=== PATIENT | female | born 1960 | race Caucasian/White ===

== ENCOUNTER → 2023-12-01 | Outpatient (CLI) | payer MEDICARE, BC ==
[2023-12-01 11:11] VITALS: BP 160/76; PULSE 79; RESP 18; TEMP 98.1
--- NOTE | 2023-12-01 11:38 | P.GSHP ---
History of Present Illness H&P Date: 12/01/23 Chief Complaint: right breast stage I invasive ductal cancer Jessica 3-year-old white female seen in consultation for Dr. Garcia regarding a right breast biopsy-proven invasive ductal carcinoma. She underwent a routine screening mammogram in September 2023 which showed a suspicious density in the retroareolar area of the right breast. She had confirmatory views on 10-08-2023. An ultrasound was done which showed a heterogeneous hypoechoic mass with irregular and slightly elevated margins measuring 0.7 x 0.7 x 0.5 cm. Ultrasound core biopsy was performed on 11-04-2023 at [facility], this was positive for grade 1 invasive ductal carcinoma ER positive [place] negative HER2 negative low Ki-67. She did not feel any lumps masses or nodules of concern in either breast. She has not had any surgery on her breast. She did not have any recent infection or trauma to her breast. Note Dr. Carrillo. medical oncology 11-16-2023 reviewed Caffeine: 4 cups/day nicotine: 1/2 PPD BCP: 3 years in remote past chocolate: occasional Family History: 2 maternal aunts: breast cancer paternal grandmother: breast cancer father: nonhodgkins lymphoma, melanoma mother: melanoma; ? ovarian cancer Hormonal History: menarche: 10 , breast fed: no, age at first : 21 menopause: hysterectomy 40 for fibroids Surgical History: gallbaldder tonsil ankle femoral artery bypass surgery stint in heart carotid artery surgery; endarterectomy thyroid Medical History: heart disease/ on a recent echo athrosclerotic disease ? COPD; SOB with walking high cholesterol HTN hypothyroid TIA Social History: nicotine: as above alcohol: none drugs: none - Constitutional Constitutional: Denies chills, Denies fever - EENT Eyes: denies blurred vision, denies pain Ears: bilateral: decreased hearing, tinnitus Ears, nose, mouth and throat: Denies headache, Denies sore throat - Breasts Breasts: bilateral: as per HPI - Cardiovascular Cardiovascular: Reports shortness of breath - Respiratory Respiratory: Reports as per HPI, Reports cough - Gastrointestinal Gastrointestinal: Denies abdominal pain, Denies diarrhea, Denies nausea, Denies vomiting - Genitourinary (Female) Genitourinary: Reports as per HPI - Menstruation Menstruation: Reports post hysterectomy - Musculoskeletal Musculoskeletal: Reports myalgias - Integumentary Integumentary: Denies pruritus, Denies rash - Neurological Neurological: Denies numbness, Denies weakness - Psychiatric Psychiatric: Denies anxiety, Denies depression - Endocrine Endocrine: Denies fatigue, Denies weight change - Hematologic/Lymphatic Comment: plavix, baby aspirin - Allergic/Immunologic Allergic/Immunologic: Reports as per HPI, Reports seasonal allergies Past Medical History History of Any Multi-Drug Resistant Organisms: None Reported Smoking Status: Current every day smoker Medications and Allergies Allergies Allergy/AdvReac Type Severity Reaction Status Date / Time lisinopril AdvReac Cough Unverified 12/01/23 11:04 Surgical - Exam Vital Signs Temp Pulse Resp BP Pulse Ox 98.1 F 79 18 160/76 95 12/01/23 11:01 12/01/23 11:01 12/01/23 11:01 12/01/23 11:01 12/01/23 11:01 - General no distress - Eyes normal ocular movement - Neck trachea midline - Respiratory normal respiratory effort, clear to auscultation - Cardiovascular Heart Sounds: normal: S1, S2 - Abdomen Abdomen: soft, non tender, no guarding, no rigid, no rebound - Integumentary normal turgor - Neurologic no disoriented, no combative - Musculoskeletal normal gait - Psychiatric oriented to time, oriented to person, oriented to place, speech is normal, memory intact Breast Exam: BRA: 38C Inspection: right side smaller than left side; bilateral grade 3 ptosis palpation: right breast: Exam fibrocystic changes, nodule immediately behind the nipple areolar complex approximately 8 mm in size Right axilla: No adenopathy of concern Left breast: Multi positional exam fibrocystic changes no dominant masses or nodules of concern Left axilla: No adenopathy of concern Assessment and Plan Assessment: Impression: Surgical History: gallbaldder tonsil ankle femoral artery bypass surgery stint in heart carotid artery surgery; endarterectomy thyroid Medical History: heart disease/ on a recent echo athrosclerotic disease ? COPD; SOB with walking high cholesterol HTN hypothyroid TIA Right breast invasive ductal carcinoma stage Ia Plan: Presentation of case at tumor board CC: Dr. Rodriguez
== END ==
LOC: WWCWWP 10:54 → EDBD 12:00
PROVIDERS: ATTEND Surgery
DX: C50.911 Malignant neoplasm of unspecified site of right female breast (principal); E03.9 Hypothyroidism, unspecified; E78.00 Pure hypercholesterolemia, unspecified; F17.210 Nicotine dependence, cigarettes, uncomplicated; I25.10 Atherosclerotic heart disease of native coronary artery without angina pectoris; I10 Essential (primary) hypertension; Z17.0 Estrogen receptor positive status [ER+]; Z80.3 Family history of malignant neoplasm of breast; Z86.73 Personal history of transient ischemic attack (TIA), and cerebral infarction without residual deficits; Z98.890 Other specified postprocedural states; Z95.5 Presence of coronary angioplasty implant and graft; Z88.8 Allergy status to other drugs, medicaments and biological substances; Z79.82 Long term (current) use of aspirin; Z79.899 Other long term (current) drug therapy; Z79.02 Long term (current) use of antithrombotics/antiplatelets

== ENCOUNTER → 2023-12-17 | Outpatient (CLI) | payer MEDICARE, BC ==
--- NOTE | 2023-12-17 11:47 | CTL ---
EXAMINATION TYPE: CT Low Dose Lung DATE OF EXAM: 12/17/2023 10:31 AM CLINICAL INDICATION:Female, 63 years old with history of Z12.2 LUNG CA SCREEN F17.210 NICOTINE DEPEND ENCE; Hx nicotine dependence, 1 pk per day x 30 years, current smoker, c/o SOB, cough , history of to bacco use. COMPARISON: None. TECHNIQUE: Multiple axial non-contrast scans were obtained from approximately the lung apices through the upper abdomen. Coronal and sagittal reformatted images were obtained. Low dose technique was uti lized. CT DLP: 100 mGycm, Automated exposure control for dose reduction was used. CT Contrast: Contrast used: None Oral contrast used: None FINDINGS: ======== Lack of intravenous contrast and low dose technique limits the evaluation of the vascular and soft ti ssue structures. LUNGS: No evidence of pulmonary fibrosis. No evidence of focal consolidation, pneumothorax or pleural effusion. Mild centrilobular emphysema changes. Nodules: RUL: None. RML: None. RLL: Calcified granuloma. PÉREZ: None. LLL: None. AIRWAY: Patent and unremarkable. HEART: Size within normal limits. MEDIASTINUM: No gross evidence of adenopathy. Calcified lymph nodes are seen along the right pulmonar y hilum and subcarinal region of the mediastinum. VASCULATURE: No aortic aneurysm. MUSCULOSKELETAL: No acute osseous abnormalities SOFT TISSUES/LYMPH NODES: Unremarkable. LOWER NECK: No significant findings. UPPER ABDOMEN: Upper abdomen diastasis of the rectus abdominis muscle versus hernia with large bowel entering the hernia. The gallbladder surgically absent. IMPRESSION: 1. No clinically significant pulmonary nodules. 2. Mild emphysema 3. Calcified mediastinal and right hilum lymph nodes and right lower lung calcified granuloma compati ble with chronic granulomatous disease. CT LUNG RAD AND CT CHEST RECOMMENDATION: Lung-Rad 1 Negative: Continue annual screening with LDCT in 12 months. S Modifier (other clinically significant findings): None Recommend smoking cessation (if current smoker), or continuation of smoking cessation (if prior smoke r). Annual screening for lung cancer with low-dose computed tomography is recommended in adults ages 55 to 77 years who have a 30 pack-year smoking history and currently smoke or have quit within the pa st 15 years. Screening should be discontinued once a person has not smoked for 15 years or develops a health problem that substantially limits life expectancy or the ability or willingness to have curat gina lung surgery. Lung rads 2021 [email or web address]
== END | disposition home or self-care (01) ==
LOC: RADCTMAIN 09:49
PROVIDERS: ATTEND Internal Medicine Critical Care Medicine
DX: Z12.2 Encounter for screening for malignant neoplasm of respiratory organs (principal); F17.210 Nicotine dependence, cigarettes, uncomplicated; J43.2 Centrilobular emphysema; R59.0 Localized enlarged lymph nodes; J98.4 Other disorders of lung
CPT/HCPCS: 71271

== ENCOUNTER 2023-12-21 11:29 | Day surgery (SDC) | payer MEDICARE, BC ==
[~2023-12-21 11:29] MED LIST: ALPRAZolam 0.5 MG TAB PO PRN; HYDROmorphone 0.5 MG/0.5 ML SYRINGE IVP PRN; LIDOCAINE 1% (10MG/ML) FOR IV START INTRADERMA PRN; METOCLOPRAMIDE 5 MG/ML 2 ML VIAL IVP PRN
[2023-12-21] MEDS: LACTATED RINGERS 1,000 ML IV SCH (11:46)
[2023-12-21] MEDS: LIDOCAINE 1% INJ 10MG/ML (20 ML MDV) SQ ONE (13:19)
[2023-12-21] MEDS: DEXAMETHASONE SOD PHOSPHATE 4 MG/ML 1 ML VIAL IV ONE (14:16)
[2023-12-21] MEDS: ONDANSETRON 4 MG/2 ML VIAL IVP ONE (14:16)
[2023-12-21] MEDS: MIDAZOLAM 2 MG/2 ML VIAL IVP ONE (14:17)
[2023-12-21] MEDS: HEPARIN SODIUM,PORCINE 5,000 UNIT/ML 1 ML VIAL SQ PRN (14:19)
--- NOTE | 2023-12-21 14:23 | NM ---
EXAMINATION TYPE: NM sentinel node injection DATE OF EXAM: 12/21/2023 COMPARISON: NONE CLINICAL INDICATION: Female, 63 years old with history of RIGHT BREAST CA; TECHNIQUE AND FINDINGS: The procedure of sentinel lymph node injection was explained to the patient. The benefits, alternatives, and risks were discussed. An informed consent was then obtained. Overlying skin is cleaned with sterile alcohol. Following this, 480 uCi Tc99m Tilmanocept was inject ed in the upper outer aspect of the right nipple intradermally. The patient tolerated the procedure well without any immediate complication. The patient was kept in the radiology department for short stay after the procedure and then taken to surgery for surgical p rocedure what is presumed intraoperative gamma probe will be used for sentinel lymph node detection. IMPRESSION: Right breast radiotracer injection for sentinel node localization as above.
--- NOTE | 2023-12-21 15:08 | P.NAPBC ---
NAPBC Queries - NAPBC Queries Was patient's case review presented at [facility] tumor board? If no, comment.: Yes Was patient's pathology reviewed at [facility]? If no, comment.: Yes Was breast conservation surgery offered? If no, comment.: Yes Was sentinel node biopsy offered? If no, comment.: Yes Was diagnosis confirmed by percutaneous core biopsy? If no, comment.: Yes Is patient mastectomy patient?: No Was a preop referral to reconstructive surgeon offered?: No Clinical Stage: stage I invasive ductal right breast cancer [id number]
[2023-12-21] MEDS ORDERED: PHENYLEPHRINE-0.9% NACL SYG 1,000 MCG/10 ML SYRINGE ONE (15:52)
[2023-12-21] MEDS ORDERED: LIDOCAINE 1% INJ 10MG/ML (20 ML MDV) ONE (15:52)
[2023-12-21] MEDS ORDERED: fentaNYL (PF) 50 MCG/ML 2 ML AMP ONE (15:52)
[2023-12-21] MEDS ORDERED: ETOMIDATE 2 MG/ML 10 ML VIAL ONE (15:52)
[2023-12-21] MEDS ORDERED: SUCCINYLCHOLINE CHLORIDE 200 MG/10 ML VIAL IV ONE (15:52)
--- NOTE | 2023-12-21 17:19 | P.OP ---
Date of Procedure: 12/21/23 Preoperative Diagnosis: Right breast invasive ductal carcinoma Postoperative Diagnosis: Same Procedure(s) Performed: Right breast sentinel node biopsy, right breast needle localization lumpectomy, right breast oncoplastic tissue transfer 48 cm Anesthesia: REILLYA Surgeon: Dayana Garcia Estimated Blood Loss (ml): 8 IV fluids (ml): 400 Pathology: other (Breast tissue, sentinel node biopsy) Condition: stable Disposition: same day Indications for Procedure: Right breast invasive ductal carcinoma Operative Findings: Right breast invasive ductal carcinoma, right axillary node Description of Procedure: The patient was seen first in the radiology department. Needle localization of the right breast cancer was performed. Periareolar injection of radiotracer was performed. The patient was brought up to the preoperative area. Discussion was had with the patient and her regarding the location of the cancer directly behind the nipple areolar complex. She wished to have the nipple areolar complex removed to decrease any risk of having to come back for a positive margin. She understands that that does not completely negate the risk but it may decrease it. The patient was brought to the operative suite. Following induction of anesthesia the neoprobe was used to interrogate the axilla. Radioactivity was noted. The right breast was prepped and draped in a sterile fashion as was the right axilla. An incision was made in the right axilla over the area of greatest radioactivity. The tissue was grasped and using the harmonic scalpel dissection was performed. The area of radioactivity was excised. The 10-second count on the lymph node was 67,681 the background count was 12. No additional radioactive or palpable lymph nodes were identified. The wound was irrigated. The deep tissues were closed using 3-0 Vicryl suture. The skin was closed using 4-0 Monocryl. The area of the breast was approached. A circumareolar incision was made and the needle was identified. The surrounding tissue was dissected down to the pectoralis muscle. The specimen was painted for orientation and radiograph revealed the area of concern to been removed. New medial lateral superior and inferior margins were obtained. Following this a superior pillar was formed which was 5 x 3 cm. An inferior pillar was formed which was 5 x 3 cm. The specimen was 6 x 3 cm. The wound was well-irrigated. Titanium clips were placed. Surgicel in powder form was placed. Total oncoplastic tissue transfer was 48 cm. The deep tissues were brought together using 3-0 Vicryl suture. The subcutaneous tissue was closed using 3-0 Vicryl suture. The skin was closed using 4-0 Monocryl. The patient tolerated the procedure in stable condition. All instrument and sponge counts were correct at the end of the case. Surgical glue was placed on the incisions.
[2023-12-21 18:07] VITALS: TEMP 97.3
[2023-12-21] MEDS ORDERED: ACETAMINOPHEN TAB 500 MG TAB ONE (18:55)
[2023-12-21] MEDS: ACETAMINOPHEN TAB 500 MG TAB PO ONE (18:58)
[2023-12-21 19:01] VITALS: BP 168/70; PULSE 65; RESP 8
--- NOTE | 2023-12-29 08:53 | MM ---
Reason for Exam: Post Procedure Mammogram. Risk Values: Edith 5 year model risk: 1.1%. NCI Lifetime model risk: 4.2%. Tissue Density: Right: The breast tissue is heterogeneously dense. This may lower the sensitivity of mammography. Pathology Description: Location: 6 o'clock, retroareolar. Needle Type: 5 cm Kopan The procedure of needle localization with wire placement and than surgical excision was explained to the patient. Benefits, alternatives, and risks were discussed. An informed consent was then obtained. The shortest pathway for procedure was chosen. Shortest pathway was a lateral approach. The overlying skin was prepped and draped in usual sterile fashion. Lidocaine was used as anesthetic into the skin and subcutaneous tissue up to the level of area of concern. A 5 cm Kopans needle was used. It was placed via a lateral approach under direct ultrasound guidance. At this point, wire was placed and the needle was withdrawn. The wire was fixed to patient's skin. Images were marked for surgeon. The patient tolerated the procedure well without any immediate complication. Post procedure mammogram shows wire along the expected subareolar mass and biopsy clip. The patient was kept in the radiology department for short stay after the procedure and then taken to surgery for surgical excision. Targeted microclip and wire are identified in specimen mammogram. The patient was kept in hospital for short stay after the procedure and then discharged home in stable condition. IMPRESSION: Successful, uncomplicated needle localization with wire placement and surgical excision of biopsy-proven subareolar right breast cancer; full pathology results to follow. Pathology Results: Result: Malignant, Invasive ductal carcinoma. A. RIGHT BREAST, LUMPECTOMY: Invasive well differentiated ductal carcinoma (grade 1) and focal low grade DCIS. Margins negative for invasive malignancy and DCIS. Background fibrocystic changes, previous biopsy site and a small intraductal papilloma not involving the margins. See Surgical Pathology Cancer Case Summary. B. RIGHT SENTINEL NODE #1: Lymph node negative for metastasis. CK7 immunostain performed on block B1 is confirmatory (controls appropriate). C. ADDITIONAL RIGHT AXILLARY TISSUE: Two lymph nodes negative for metastasis. D. RIGHT BREAST NEW SUPERIOR MARGIN, EXCISION: Benign breast with fibrocystic changes. E. RIGHT BREAST NEW MEDIAL MARGIN, EXCISION: Benign breast with fibrocystic changes. F. RIGHT BREAST NEW INFERIOR MARGIN, EXCISION: Benign breast with fibrocystic changes including focal microcalcifications. G. RIGHT BREAST NEW LATERAL MARGIN, EXCISION: Benign breast with fibrocystic changes. Overall Assessment: Malignant Assessment: MG diagnostic mammo RT wo CAD - Right: Known biopsy proven malignancy, BI-RAD 6. Management: Surgical Consultation of the right breast. Electronically signed and approved by: Emy León M.D. Radiologist
== END 2023-12-21 19:25 | disposition home or self-care (01) ==
LOC: OR 11:29
PROVIDERS: ATTEND Surgery
DX: C50.911 Malignant neoplasm of unspecified site of right female breast (principal)
CPT/HCPCS: 19301; 38525; 88342; 88307; 77065; 76098; 19285; 38792; C1819; A9520; J2250; J0330; J1644; J1100; J0690; J2405; J2001; J3010; J2371

== ENCOUNTER → 2023-12-30 | Outpatient (CLI) | payer MEDICARE, BC ==
--- NOTE | 2023-12-30 12:34 | P.PN ---
Progress Note - Text Progress Note Date: 12/30/23 Jessica is status post right breast central lumpectomy on 12-21-2023. Postoperatively she has done well. Pathology revealed all negative margins and 3 lymph nodes negative for tumor. Examination: Lungs: Clear Heart: Regular rate and rhythm Incision: Clean and dry breast and axilla/ecchymosis present lateral aspect of breast Patient's blood pressure was noted to be 194/68 and patient developed a nosebleed while in the postoperative visit Impression: Patient doing well postoperative from a surgical standpoint Plan: Appointment medical oncology Appointment radiation oncology Repeat blood pressure Follow-up with primary care doctor regarding blood pressure/consider being seen in the emergency department CC: Dr. Holly ([facility])
[2023-12-30 12:43] VITALS: BP 194/68; PULSE 55; RESP 16; TEMP 98.1
== END ==
LOC: WWCWWP 11:06
PROVIDERS: ATTEND Surgery
DX: R04.0 Epistaxis (principal); Z98.890 Other specified postprocedural states; Z88.8 Allergy status to other drugs, medicaments and biological substances

== ENCOUNTER → 2024-04-24 | Outpatient (CLI) | payer MEDICARE, BC ==
[2024-04-24 08:54] VITALS: BP 183/78; PULSE 61; RESP 17; TEMP 98.3
--- NOTE | 2024-04-24 09:22 | P.PN ---
Subjective Progress Note Date: 04/24/24 Principal diagnosis: Stage Ia (pT1b pN0 M0 ER + IL - HER2- G 1) invasive ductal carcinoma retroareolar right breast status post partial mastectomy and sentinel node biopsy History of Present Illness H&P Date: 04-24-24 Chief Complaint: right breast stage I invasive ductal cancer Jessica is a 64-year-old white female seen in consultation for Dr. Carrillo regarding a right breast biopsy-proven invasive ductal carcinoma. She underwent a routine screening mammogram in September 2023 which showed a suspicious density in the retroareolar area of the right breast. She had confirmatory views on 10-08-2023. An ultrasound was done which showed a heterogeneous hypoechoic mass with irregular and slightly elevated margins measuring 0.7 x 0.7 x 0.5 cm. Ultrasound core biopsy was performed on 11-04-2023 at [facility], this was positive for grade 1 invasive ductal carcinoma ER positive [place] negative HER2 negative low Ki-67. She did not feel any lumps masses or nodules of concern in either breast. She has not had any surgery on her breast. She did not have any recent infection or trauma to her breast. The patient on 12-21-2023 underwent a right breast lumpectomy and sentinel node biopsy. The lumpectomy revealed an 8 mm invasive ductal carcinoma all margins were negative. She had 3 lymph nodes removed all were negative. 01-11-[address] Dodd reviewed, completed treatment about 3 weeks ago She is on antihormone medication from Dr. Carrillo; she is tolerating it well She is complaining of some fullness under the right breast, no other lumps masses or nodule of concern Caffeine: 4 cups/day nicotine: 1/2 PPD BCP: 3 years in remote past chocolate: occasional Family History: 2 maternal aunts: breast cancer paternal grandmother: breast cancer father: nonhodgkins lymphoma, melanoma mother: melanoma; ? ovarian cancer Hormonal History: menarche: 10 , breast fed: no, age at first : 21 menopause: hysterectomy 40 for fibroids Surgical History: gallbaldder tonsil ankle femoral artery bypass surgery stint in heart carotid artery surgery; endarterectomy thyroid right breast lumpectomy and SNB Medical History: heart disease/ on a recent echo athrosclerotic disease ? COPD; SOB with walking high cholesterol HTN hypothyroid TIA Social History: nicotine: as above alcohol: none drugs: none - Constitutional Constitutional: Denies chills, Denies fever - EENT Eyes: denies blurred vision, denies pain Ears: bilateral: decreased hearing, tinnitus Ears, nose, mouth and throat: Denies headache, Denies sore throat - Breasts Breasts: bilateral: as per HPI - Cardiovascular Cardiovascular: Reports shortness of breath - Respiratory Respiratory: Reports as per HPI, Reports cough - Gastrointestinal Gastrointestinal: Denies abdominal pain, Denies diarrhea, Denies nausea, Denies vomiting - Genitourinary (Female) Genitourinary: Reports as per HPI - Menstruation Menstruation: Reports post hysterectomy - Musculoskeletal Musculoskeletal: Reports myalgias - Integumentary Integumentary: Denies pruritus, Denies rash - Neurological Neurological: Denies numbness, Denies weakness - Psychiatric Psychiatric: Denies anxiety, Denies depression - Endocrine Endocrine: Denies fatigue, Denies weight change - Hematologic/Lymphatic Comment: plavix, baby aspirin - Allergic/Immunologic Allergic/Immunologic: Reports as per HPI, Reports seasonal allergies Past Medical History History of Any Multi-Drug Resistant Organisms: None Reported Smoking Status: Current every day smoker Medications and Allergies Allergies Allergy/AdvReac Type Severity Reaction Status Date / Time lisinopril AdvReac Cough Unverified 12/01/23 11:04 Objective - Vital Signs Vital signs: Intake & Output 04/23/24 04/24/24 04/24/24 18:59 06:59 18:59 Weight 92.986 kg - Constitutional General appearance: Present: cooperative - EENT Eyes: Present: EOMI ENT: Present: hearing grossly normal - Neck Neck: Present: normal ROM - Respiratory Respiratory: bilateral: CTA - Cardiovascular Heart sounds: normal: S1, S2 - Integumentary Integumentary: Present: normal turgor - Musculoskeletal Musculoskeletal: Present: gait normal - Psychiatric Psychiatric: Present: A&O x's 3, appropriate affect, intact judgment & insight - Additional findings Additional findings: Breast Exam: BRA: 38C Inspection: right side smaller than left side; bilateral grade 3 ptosis palpation: right breast: Exam fibrocystic changes, nodule immediately behind the nipple areolar complex approximately 8 mm in size Right axilla: No adenopathy of concern Left breast: Multi positional exam fibrocystic changes no dominant masses or nodules of concern Left axilla: No adenopathy of concern Assessment and Plan Assessment: Impression: Surgical History: gallbaldder tonsil ankle femoral artery bypass surgery stint in heart carotid artery surgery; endarterectomy thyroid Status post right lumpectomy with radiation therapy right breast presently on antihormone therapy Right breast invasive ductal carcinoma stage Ia Patient of seroma Following informed consent the area of concern was prepped using alcohol, an 18- gauge needle on a 60 cc syringe was used to aspirate 410 cc of straw-colored fluid with complete resolution of the seroma Plan: Continue antihormone therapy Follow-up radiation oncology Follow-up here in 1 month to recheck seroma bilateral mammogram in September 2024 patient to follow up sooner any concerns CC: Dr. Holly Additional CC's: Chai Holly
== END ==
LOC: WWCWWP 08:38
PROVIDERS: ATTEND Surgery
DX: C50.911 Malignant neoplasm of unspecified site of right female breast (principal); K82.9 Disease of gallbladder, unspecified; J03.90 Acute tonsillitis, unspecified; L76.82 Other postprocedural complications of skin and subcutaneous tissue; F17.210 Nicotine dependence, cigarettes, uncomplicated; Z95.5 Presence of coronary angioplasty implant and graft; Z98.890 Other specified postprocedural states; Z48.817 Encounter for surgical aftercare following surgery on the skin and subcutaneous tissue; Z92.3 Personal history of irradiation; Z90.11 Acquired absence of right breast and nipple; Z17.0 Estrogen receptor positive status [ER+]; Z88.8 Allergy status to other drugs, medicaments and biological substances; Z80.3 Family history of malignant neoplasm of breast

== ENCOUNTER → 2024-05-26 | Outpatient (CLI) | payer MEDICARE, BC ==
--- NOTE | 2024-05-26 10:22 | P.PN ---
Subjective Progress Note Date: 05/26/24 Principal diagnosis: right breast IDC 2023 ight breast stage I invasive ductal cancer Jessica is a 64-year-old white female seen in consultation for Dr. Carrillo regarding a right breast biopsy-proven invasive ductal carcinoma. She underwent a routine screening mammogram in September 2023 which showed a suspicious density in the retroareolar area of the right breast. She had confirmatory views on 10-08-2023. An ultrasound was done which showed a heterogeneous hypoechoic mass with irregular and slightly elevated margins measuring 0.7 x 0.7 x 0.5 cm. Ultrasound core biopsy was performed on 11-04-2023 at [facility], this was positive for grade 1 invasive ductal carcinoma ER positive [place] negative HER2 negative low Ki-67. She did not feel any lumps masses or nodules of concern in either breast. She has not had any surgery on her breast. She did not have any recent infection or trauma to her breast. Note Dr. Carrillo. medical oncology 11-16-2023 reviewed, recommended hormone therapy (on hormone blocking agent, she is uncertain of the name of the medication, she is tolerating it OK)) OR 12-21-23 8 mm IDC, all margins (-), SNB 3 nodes (-) radiation oncology note : completed March 2024; 20 treatments; Dr. Dodd in [place] through [facility] She had a seroma aspirated about 4 weeks ago. Caffeine: 4 cups/day nicotine: 1/2 PPD BCP: 3 years in remote past chocolate: occasional Family History: 2 maternal aunts: breast cancer paternal grandmother: breast cancer father: nonhodgkins lymphoma, melanoma mother: melanoma; ? ovarian cancer Hormonal History: menarche: 10 , breast fed: no, age at first : 21 menopause: hysterectomy 40 for fibroids Surgical History: gallbaldder tonsil ankle femoral artery bypass surgery stint in heart carotid artery surgery; endarterectomy thyroid Medical History: heart disease/ on a recent echo athrosclerotic disease ? COPD; SOB with walking high cholesterol HTN hypothyroid TIA Social History: nicotine: as above alcohol: none drugs: none - Constitutional Constitutional: Denies chills, Denies fever - EENT Eyes: denies blurred vision, denies pain Ears: bilateral: decreased hearing, tinnitus Ears, nose, mouth and throat: Denies headache, Denies sore throat - Breasts Breasts: bilateral: as per HPI - Cardiovascular Cardiovascular: Reports shortness of breath - Respiratory Respiratory: Reports as per HPI, Reports cough - Gastrointestinal Gastrointestinal: Denies abdominal pain, Denies diarrhea, Denies nausea, Denies vomiting - Genitourinary (Female) Genitourinary: Reports as per HPI - Menstruation Menstruation: Reports post hysterectomy - Musculoskeletal Musculoskeletal: Reports myalgias - Integumentary Integumentary: Denies pruritus, Denies rash - Neurological Neurological: Denies numbness, Denies weakness - Psychiatric Psychiatric: Denies anxiety, Denies depression - Endocrine Endocrine: Denies fatigue, Denies weight change - Hematologic/Lymphatic Comment: plavix, baby aspirin - Allergic/Immunologic Allergic/Immunologic: Reports as per HPI, Reports seasonal allergies Past Medical History History of Any Multi-Drug Resistant Organisms: None Reported Smoking Status: Current every day smoker Medications and Allergies Allergies Allergy/AdvReac Type Severity Reaction Status Date / Time lisinopril AdvReac Cough Unverified 12/01/23 11:04 Objective - Constitutional General appearance: Present: cooperative - EENT Eyes: Present: EOMI ENT: Present: hearing grossly normal - Neck Neck: Present: normal ROM - Respiratory Respiratory: bilateral: CTA - Cardiovascular Heart sounds: normal: S1, S2 - Integumentary Integumentary: Present: normal turgor - Musculoskeletal Musculoskeletal: Present: gait normal - Psychiatric Psychiatric: Present: A&O x's 3, appropriate affect, intact judgment & insight - Additional findings Additional findings: Breast Exam: BRA: 38C Inspection: right side smaller than left side; bilateral grade 3 ptosis palpation: right breast: Exam fibrocystic changes, post op changes, no masses of concern Right axilla: No adenopathy of concern Left breast: Multi positional exam fibrocystic changes, post op changes, no nipple or aerola, seroma present Left axilla: No adenopathy of concern Assessment and Plan Assessment: Impression: Surgical History: gallbaldder tonsil ankle femoral artery bypass surgery stint in heart carotid artery surgery; endarterectomy thyroid Medical History: heart disease/ on a recent echo athrosclerotic disease ? COPD; SOB with walking high cholesterol HTN hypothyroid TIA right breast central lumpectomy 12-21-23 Plan: aspiration of seroma follow up medical oncology follow up radiation oncology follow up here in 1 month bilateral mammogram in September with appointment CC: Dr. Flynn
[2024-05-26 10:31] VITALS: BP 149/67; PULSE 63; RESP 16; TEMP 97.9
== END ==
LOC: WWCWWP 09:21
PROVIDERS: ATTEND Surgery
DX: C50.911 Malignant neoplasm of unspecified site of right female breast (principal); E78.00 Pure hypercholesterolemia, unspecified; I10 Essential (primary) hypertension; F17.210 Nicotine dependence, cigarettes, uncomplicated; E03.9 Hypothyroidism, unspecified; Z86.73 Personal history of transient ischemic attack (TIA), and cerebral infarction without residual deficits; Z80.3 Family history of malignant neoplasm of breast; Z17.0 Estrogen receptor positive status [ER+]; Z88.8 Allergy status to other drugs, medicaments and biological substances; Z79.899 Other long term (current) drug therapy; Z79.02 Long term (current) use of antithrombotics/antiplatelets; Z79.890 Hormone replacement therapy

== ENCOUNTER → 2024-06-06 | Outpatient (CLI) | payer MEDICARE, BC ==
--- NOTE | 2024-06-06 13:47 | P.PN ---
Subjective Progress Note Date: 06/06/24 Following informed consent the area of concern in the right breast was prepped with alcohol. An 18 chencho needle on a 20 cc syringe was used to aspirate 280 cc of straw colored fluid with complete resolution of the seroma. The patient tolerated the procedure well. Original Note: Subjective Progress Note Date: 05/26/24 Principal diagnosis: right breast IDC 2023 ight breast stage I invasive ductal cancer Jessica is a 64-year-old white female seen in consultation for Dr. Carrillo regarding a right breast biopsy-proven invasive ductal carcinoma. She underwent a routine screening mammogram in September 2023 which showed a suspicious density in the retroareolar area of the right breast. She had confirmatory views on 10-08-2023. An ultrasound was done which showed a heterogeneous hypoechoic mass with irregular and slightly elevated margins measuring 0.7 x 0.7 x 0.5 cm. Ultrasound core biopsy was performed on 11-04-2023 at [facility], this was positive for grade 1 invasive ductal carcinoma ER positive [place] negative HER2 negative low Ki-67. She did not feel any lumps masses or nodules of concern in either breast. She has not had any surgery on her breast. She did not have any recent infection or trauma to her breast. Note Dr. Carrillo. medical oncology 11-16-2023 reviewed, recommended hormone therapy (on hormone blocking agent, she is uncertain of the name of the medication, she is tolerating it OK)) OR 12-21-23 8 mm IDC, all margins (-), SNB 3 nodes (-) radiation oncology note : completed March 2024; 20 treatments; Dr. Dodd in [place] through [facility] She had a seroma aspirated about 4 weeks ago. 06-06-24 Jessica noted over the past several days that the breast on the right became swollen and erythematous. She has not had any fever or chills. She comes in for evaluation and possible repeat seroma Caffeine: 4 cups/day nicotine: 1/2 PPD BCP: 3 years in remote past chocolate: occasional Family History: 2 maternal aunts: breast cancer paternal grandmother: breast cancer father: nonhodgkins lymphoma, melanoma mother: melanoma; ? ovarian cancer Hormonal History: menarche: 10 , breast fed: no, age at first : 21 menopause: hysterectomy 40 for fibroids Surgical History: gallbaldder tonsil ankle femoral artery bypass surgery stint in heart carotid artery surgery; endarterectomy thyroid Medical History: heart disease/ on a recent echo athrosclerotic disease ? COPD; SOB with walking high cholesterol HTN hypothyroid TIA Social History: nicotine: as above alcohol: none drugs: none - Constitutional Constitutional: Denies chills, Denies fever - EENT Eyes: denies blurred vision, denies pain Ears: bilateral: decreased hearing, tinnitus Ears, nose, mouth and throat: Denies headache, Denies sore throat - Breasts Breasts: bilateral: as per HPI - Cardiovascular Cardiovascular: Reports shortness of breath - Respiratory Respiratory: Reports as per HPI, Reports cough - Gastrointestinal Gastrointestinal: Denies abdominal pain, Denies diarrhea, Denies nausea, Denies vomiting - Genitourinary (Female) Genitourinary: Reports as per HPI - Menstruation Menstruation: Reports post hysterectomy - Musculoskeletal Musculoskeletal: Reports myalgias - Integumentary Integumentary: Denies pruritus, Denies rash - Neurological Neurological: Denies numbness, Denies weakness - Psychiatric Psychiatric: Denies anxiety, Denies depression - Endocrine Endocrine: Denies fatigue, Denies weight change - Hematologic/Lymphatic Comment: plavix, baby aspirin - Allergic/Immunologic Allergic/Immunologic: Reports as per HPI, Reports seasonal allergies Past Medical History History of Any Multi-Drug Resistant Organisms: None Reported Smoking Status: Current every day smoker Medications and Allergies Allergies Allergy/AdvReac Type Severity Reaction Status Date / Time lisinopril AdvReac Cough Unverified 12/01/23 11:04 Objective - Constitutional General appearance: Present: cooperative - EENT Eyes: Present: EOMI ENT: Present: hearing grossly normal - Neck Neck: Present: normal ROM - Respiratory Respiratory: bilateral: CTA - Cardiovascular Heart sounds: normal: S1, S2 - Integumentary Integumentary Comment(s): Right breast mile erythema - Musculoskeletal Musculoskeletal: Present: gait normal - Psychiatric Psychiatric: Present: A&O x's 3, appropriate affect, intact judgment & insight - Additional findings Additional findings: Breast: Mild erythema medial aspect Palpation: Probable recurrent seroma Incision clean and dry well-healed Assessment and Plan Assessment: Impression: Seroma right breast Erythema right breast Plan: Aspiration seroma Antibiotics, Keflex 251 p.o. 4 times daily for 5 days secondary to mild erythema of the breast Following informed consent the area of concern in the right breast was prepped using alcohol. An 18-gauge needle on a 20 cc syringe was used to aspirate 140 cc of straw-colored fluid. There was complete resolution of the seroma. Patient tolerated this in stable condition.
[2024-06-06 14:38] VITALS: BP 161/74; PULSE 67; RESP 17; TEMP 98.2
== END ==
LOC: WWCWWP 13:26
PROVIDERS: ATTEND Surgery
DX: Z08 Encounter for follow-up examination after completed treatment for malignant neoplasm (principal); N64.89 Other specified disorders of breast; L53.8 Other specified erythematous conditions; L76.33 Postprocedural seroma of skin and subcutaneous tissue following a dermatologic procedure; F17.210 Nicotine dependence, cigarettes, uncomplicated; Z88.8 Allergy status to other drugs, medicaments and biological substances; Z80.3 Family history of malignant neoplasm of breast; Z85.3 Personal history of malignant neoplasm of breast

== ENCOUNTER → 2024-07-13 | Outpatient (CLI) | payer MEDICARE, BC ==
[2024-07-13 15:00] VITALS: BP 163/76; PULSE 67; RESP 16; TEMP 98.3
--- NOTE | 2024-07-13 15:35 | P.PN ---
Subjective Progress Note Date: 07/13/24 right breast IDC 2023 right breast stage I invasive ductal cancer Jessica is a 64-year-old white female seen in consultation for Dr. Carrillo regarding a right breast biopsy-proven invasive ductal carcinoma. She underwent a routine screening mammogram in September 2023 which showed a suspicious density in the retroareolar area of the right breast. She had confirmatory views on 10-08-2023. An ultrasound was done which showed a heterogeneous hypoechoic mass with irregular and slightly elevated margins measuring 0.7 x 0.7 x 0.5 cm. Ultrasound core biopsy was performed on 11-04-2023 at [facility], this was positive for grade 1 invasive ductal carcinoma ER positive [place] negative HER2 negative low Ki-67. She did not feel any lumps masses or nodules of concern in either breast. She has not had any surgery on her breast. She did not have any recent infection or trauma to her breast. Note Dr. Carrillo. medical oncology 11-16-2023 reviewed, recommended hormone therapy (on hormone blocking agent, she is uncertain of the name of the medication, she is tolerating it OK)) Surgery 12-21-23 8 mm IDC, all margins (-), SNB 3 nodes (-) radiation oncology note : completed March 2024; 20 treatments; Dr. Dodd in [place] through [facility] She had a seroma aspirated about April 2024 seroma aspirated on 05-26-24 280 CC straw colored fluid She does have some swelling at the central aspect of the right breast near the lumpectomy site. She is not complaining of any fever or chills. Caffeine: 4 cups/day nicotine: 1/2 PPD BCP: 3 years in remote past chocolate: occasional Family History: 2 maternal aunts: breast cancer paternal grandmother: breast cancer father: nonhodgkins lymphoma, melanoma mother: melanoma; ? ovarian cancer Hormonal History: menarche: 10 , breast fed: no, age at first : 21 menopause: hysterectomy 40 for fibroids Surgical History: gallbaldder tonsil ankle femoral artery bypass surgery stint in heart carotid artery surgery; endarterectomy thyroid Medical History: heart disease/ on a recent echo athrosclerotic disease ? COPD; SOB with walking high cholesterol HTN hypothyroid TIA Social History: nicotine: as above alcohol: none drugs: none - Constitutional Constitutional: Denies chills, Denies fever - EENT Eyes: denies blurred vision, denies pain Ears: bilateral: decreased hearing, tinnitus Ears, nose, mouth and throat: Denies headache, Denies sore throat - Breasts Breasts: bilateral: as per HPI - Cardiovascular Cardiovascular: Reports shortness of breath - Respiratory Respiratory: Reports as per HPI, Reports cough - Gastrointestinal Gastrointestinal: Denies abdominal pain, Denies diarrhea, Denies nausea, Denies vomiting - Genitourinary (Female) Genitourinary: Reports as per HPI - Menstruation Menstruation: Reports post hysterectomy - Musculoskeletal Musculoskeletal: Reports myalgias - Integumentary Integumentary: Denies pruritus, Denies rash - Neurological Neurological: Denies numbness, Denies weakness - Psychiatric Psychiatric: Denies anxiety, Denies depression - Endocrine Endocrine: Denies fatigue, Denies weight change - Hematologic/Lymphatic Comment: plavix, baby aspirin - Allergic/Immunologic Allergic/Immunologic: Reports as per HPI, Reports seasonal allergies Past Medical History History of Any Multi-Drug Resistant Organisms: None Reported Smoking Status: Current every day smoker Medications and Allergies Allergies Allergy/AdvReac Type Severity Reaction Status Date / Time lisinopril AdvReac Cough Unverified 12/01/23 11:04 Objective - Vital Signs Vital signs: Vital Signs Temp 98.3 F 07/13/24 14:58 Pulse 67 07/13/24 14:58 Resp 16 07/13/24 14:58 BP 163/76 07/13/24 14:58 Pulse Ox 97 07/13/24 14:58 FiO2 Intake & Output 07/12/24 07/13/24 07/13/24 18:59 06:59 18:59 Weight 92.986 kg - Constitutional General appearance: Present: cooperative - EENT Eyes: Present: EOMI ENT: Present: hearing grossly normal - Neck Neck: Present: normal ROM - Respiratory Respiratory: bilateral: CTA - Cardiovascular Heart sounds: normal: S1, S2 - Integumentary Integumentary: Present: normal turgor - Musculoskeletal Musculoskeletal: Present: gait normal - Psychiatric Psychiatric: Present: A&O x's 3, appropriate affect, intact judgment & insight - Additional findings Additional findings: Breast Exam: BRA: 38C Inspection: right side smaller than left side; bilateral grade 3 ptosis palpation: right breast: Exam fibrocystic changes, post op changes, no masses of concern Right axilla: No adenopathy of concern Left breast: Multi positional exam fibrocystic changes, post op changes, no nipple or aerola, seroma present Left axilla: No adenopathy of concern Assessment and Plan Assessment: Impression: Surgical History: gallbaldder tonsil ankle femoral artery bypass surgery stint in heart carotid artery surgery; endarterectomy thyroid Medical History: heart disease/ on a recent echo athrosclerotic disease ? COPD; SOB with walking high cholesterol HTN hypothyroid TIA right breast central lumpectomy 12-21-23 Plan: aspiration of seroma follow up medical oncology follow up radiation oncology follow up here in 1 month bilateral mammogram in September with appointment CC: Dr. Flynn Additional CC's: Chai Holly
== END ==
LOC: WWCWWP 14:26
PROVIDERS: ATTEND Surgery
DX: C50.911 Malignant neoplasm of unspecified site of right female breast (principal); F17.210 Nicotine dependence, cigarettes, uncomplicated; E78.00 Pure hypercholesterolemia, unspecified; I10 Essential (primary) hypertension; E03.9 Hypothyroidism, unspecified; Z80.3 Family history of malignant neoplasm of breast; Z86.73 Personal history of transient ischemic attack (TIA), and cerebral infarction without residual deficits; Z17.0 Estrogen receptor positive status [ER+]; Z88.8 Allergy status to other drugs, medicaments and biological substances; Z79.899 Other long term (current) drug therapy

== ENCOUNTER → 2024-08-10 | Outpatient (CLI) | payer MEDICARE, BC ==
[2024-08-10 11:39] VITALS: BP 152/75; PULSE 79; RESP 17; TEMP 98.2
--- NOTE | 2024-08-10 12:02 | P.PN ---
Subjective Progress Note Date: 08/10/24 Subjective Progress Note Date: 08-10-24 Principal diagnosis: right breast IDC 2023 right breast stage I invasive ductal cancer Jessica is a 64-year-old white female seen in consultation for Dr. Carrillo regarding a right breast biopsy-proven invasive ductal carcinoma. She underwent a routine screening mammogram in September 2023 which showed a suspicious density in the retroareolar area of the right breast. She had confirmatory views on 10-08-2023. An ultrasound was done which showed a heterogeneous hypoechoic mass with irregular and slightly elevated margins measuring 0.7 x 0.7 x 0.5 cm. Ultrasound core biopsy was performed on 11-04-2023 at [facility], this was positive for grade 1 invasive ductal carcinoma ER positive [place] negative HER2 negative low Ki-67. She did not feel any lumps masses or nodules of concern in either breast. She has not had any surgery on her breast. She did not have any recent infection or trauma to her breast. Note Dr. Carrillo. medical oncology 11-16-2023 reviewed, on visit in May 2024 recommended hormone therapy (on hormone blocking agent, anestrazole tolerating it well) OR 12-21-23 8 mm IDC, all margins (-), SNB 3 nodes (-) radiation oncology note : completed March 2024; 20 treatments; Dr. Dodd in [facility] on 05-26-24 she had a 280 cc seroma aspirated She is not complaining of any new lumps masses or nodules of concern; she does have some nodularity in the subcutaneous tissue in the right axilla which has been present intermittently for at least 5 years. Caffeine: 4 cups/day nicotine: 1/2 PPD BCP: 3 years in remote past chocolate: occasional Family History: 2 maternal aunts: breast cancer paternal grandmother: breast cancer father: nonhodgkins lymphoma, melanoma mother: melanoma; ? ovarian cancer Hormonal History: menarche: 10 , breast fed: no, age at first : 21 menopause: hysterectomy 40 for fibroids Surgical History: gallbaldder tonsil ankle femoral artery bypass surgery stint in heart carotid artery surgery; endarterectomy thyroid right breast lumpectomy and SNB Medical History: heart disease/ on a recent echo athrosclerotic disease ? COPD; SOB with walking high cholesterol HTN hypothyroid TIA Social History: nicotine: as above alcohol: none drugs: none - Constitutional Constitutional: Denies chills, Denies fever - EENT Eyes: denies blurred vision, denies pain Ears: bilateral: decreased hearing, tinnitus Ears, nose, mouth and throat: Denies headache, Denies sore throat - Breasts Breasts: bilateral: as per HPI - Cardiovascular Cardiovascular: Reports shortness of breath - Respiratory Respiratory: Reports as per HPI, Reports cough - Gastrointestinal Gastrointestinal: Denies abdominal pain, Denies diarrhea, Denies nausea, Denies vomiting - Genitourinary (Female) Genitourinary: Reports as per HPI - Menstruation Menstruation: Reports post hysterectomy - Musculoskeletal Musculoskeletal: Reports myalgias - Integumentary Integumentary: Denies pruritus, Denies rash - Neurological Neurological: Denies numbness, Denies weakness - Psychiatric Psychiatric: Denies anxiety, Denies depression - Endocrine Endocrine: Denies fatigue, Denies weight change - Hematologic/Lymphatic Comment: plavix, baby aspirin - Allergic/Immunologic Allergic/Immunologic: Reports as per HPI, Reports seasonal allergies Past Medical History History of Any Multi-Drug Resistant Organisms: None Reported Smoking Status: Current every day smoker Medications and Allergies Allergies Allergy/AdvReac Type Severity Reaction Status Date / Time lisinopril AdvReac Cough Unverified 12/01/23 11:04 Objective - Vital Signs Vital signs: Intake & Output 08/09/24 08/10/24 08/10/24 18:59 06:59 18:59 Weight 92.079 kg - Constitutional General appearance: Present: cooperative - EENT Eyes: Present: EOMI ENT: Present: hearing grossly normal - Neck Neck: Present: normal ROM - Respiratory Respiratory: bilateral: CTA - Cardiovascular Rhythm: regular Heart sounds: normal: S1, S2 - Integumentary Integumentary: Present: normal turgor - Musculoskeletal Musculoskeletal: Present: gait normal - Psychiatric Psychiatric: Present: A&O x's 3, appropriate affect, intact judgment & insight - Additional findings Additional findings: Breast Exam: BRA: 38C Inspection: right side smaller than left side; bilateral grade 3 ptosis palpation: right breast: Exam fibrocystic changes, post op changes, no masses of concern, probable seroma Right axilla: No adenopathy of concern, subcutaneous nodule may be sebaceous cyst Left breast: Multi positional exam fibrocystic changes, post op changes, no nipple or aerola, Left axilla: No adenopathy of concern Assessment and Plan Assessment: Impression: Central lumpectomy, right breast; status post radiation therapy probable seroma Right axilla probable sebaceous cyst Plan: aspiration of seroma follow up medical oncology follow up radiation oncology follow up here in 1 month after mammogram bilateral mammogram in September 2024 with appointment resection Sebaceous cyst/nodule right axilla in the operating room Informed consent the area of concern in the right breast was prepped using alcohol. An 18-gauge needle and a 20 cc syringe was used to aspirate 135 straw- colored fluid. She tolerated the procedure without difficulty. We will obtain to get preoperative clearance from Dr. Flynn and Dr. Vick (cardiology) CC: Dr. Flynn
== END ==
LOC: WWCWWP 11:00
PROVIDERS: ATTEND Surgery
DX: C50.611 Malignant neoplasm of axillary tail of right female breast (principal); F17.210 Nicotine dependence, cigarettes, uncomplicated; Z88.8 Allergy status to other drugs, medicaments and biological substances; Z48.817 Encounter for surgical aftercare following surgery on the skin and subcutaneous tissue; Z92.3 Personal history of irradiation; Z17.0 Estrogen receptor positive status [ER+]; Z80.3 Family history of malignant neoplasm of breast

== ENCOUNTER 2024-08-22 12:20 | Day surgery (SDC) | payer MEDICARE, BC ==
[2024-08-17 12:34] VITALS: BMI 34.8
[~2024-08-22 12:20] MED LIST changes: -ALPRAZolam 0.5 MG TAB PO PRN; -LIDOCAINE 1% (10MG/ML) FOR IV START INTRADERMA PRN; -METOCLOPRAMIDE 5 MG/ML 2 ML VIAL IVP PRN; +Pre Op ABX Message 1 EACH MISC MISCELLANE ONE
[2024-08-22 13:03] VITALS: TEMP 97.4
[2024-08-22] MEDS: LACTATED RINGERS 1,000 ML IV SCH (13:14)
[2024-08-22] MEDS: ACETAMINOPHEN TAB 500 MG TAB PO PRN (13:17)
[2024-08-22] MEDS: ONDANSETRON 4 MG/2 ML VIAL IVP ONE (13:18)
[2024-08-22] MEDS: DEXAMETHASONE SOD PHOSPHATE 4 MG/ML 1 ML VIAL IV ONE (13:20)
[2024-08-22] MEDS: HEPARIN SODIUM,PORCINE 5,000 UNIT/ML 1 ML VIAL SQ PRN (13:22)
[2024-08-22] MEDS ORDERED: PROPOFOL 10 MG/ML 20 ML VIAL IV ONE (14:30)
[2024-08-22] MEDS ORDERED: fentaNYL (PF) 50 MCG/ML 2 ML AMP ONE (14:30)
[2024-08-22] MEDS ORDERED: MIDAZOLAM 2 MG/2 ML VIAL ONE (14:30)
[2024-08-22] MEDS ORDERED: ceFAZolin 1 GM/50 ML BAG (PMX) ONE (14:30)
[2024-08-22] MEDS: IV FLUID CONTINUATION 1,000 ML IV ONE (14:34)
[2024-08-22] MEDS: SODIUM CHLORIDE 0.9% 100 ML with ceFAZolin 2,000 MG IV ONE (14:35)
[2024-08-22] MEDS: LIDOCAINE 1% INJ 10MG/ML (20 ML MDV) SQ ONE (14:51)
--- NOTE | 2024-08-22 15:06 | P.BCAON ---
Date of Procedure: 08/22/24 Preoperative Diagnosis: 2 sebaceous cyst right axilla Postoperative Diagnosis: Same Procedure(s) Performed: Removal of 2 sebaceous cyst right axilla Anesthesia: MAC Surgeon: Dayana Garcia Estimated Blood Loss (ml): 2 IV fluids (ml): 100 Pathology: other (two sebaceous cyst right axilla) Condition: stable Disposition: same day Indications for Procedure: 2 nodules right axilla most likely sebaceous cyst Operative Findings: 2 sebaceous cyst right axilla Description of Procedure: Following induction of anesthesia 2 areas of palpable abnormality in the right axilla were prepped. They were draped in a sterile fashion. 1% lidocaine was used to anesthetize both areas. Wide excision of both areas was performed. Both appear to be encapsulated sebaceous cyst. The area was irrigated. After a ssuring that hemostasis was attained the incisions were closed using nylon suture. The patient tolerated the procedure in stable condition. The specimens were sent to pathology. All instrument and sponge counts were correct at the end of the case.
[2024-08-22 15:43] VITALS: PULSE 60
[2024-08-22 15:58] VITALS: BP 118/69; RESP 18
== END 2024-08-22 16:09 | disposition home or self-care (01) ==
LOC: OR 12:20
PROVIDERS: ATTEND Surgery
CPT/HCPCS: 88304

== ENCOUNTER → 2024-09-04 | Outpatient (CLI) | payer MEDICARE, BC ==
--- NOTE | 2024-09-04 12:16 | P.BCPO ---
Progress Note - Text Progress Note Date: 09/04/24 Jessica is status post resection of two epidermal inclusion cyst on 08-22-24. Examination: Surgical site clean and dry sutures ready for removal There is a small seroma recurrent in the right breast however it is not bothering the patient at this time Impression: Epidermal inclusion cyst x 2 in the right axilla Plan: Removal of sutures Patient will be due for bilateral mammogram in September 2024 with an appointment at that time
[2024-09-04 12:35] VITALS: BP 145/70; PULSE 63; RESP 17; TEMP 98.4
== END ==
LOC: WWCWWP 11:39
PROVIDERS: ATTEND Surgery
DX: L72.0 Epidermal cyst (principal)

== ENCOUNTER → 2024-09-26 | Outpatient (CLI) | payer MEDICARE, BC ==
--- NOTE | 2024-09-26 09:00 | MM ---
Reason for Exam: Hx of breast cancer, conservation therapy. Last screening mammogram was performed 11 month(s) ago. Patient History: Menarche at age 10. First Full-Term at age 21. Hysterectomy at age 43. Postmenopausal. Patient has history of breast feeding. Breast cancer, right, age 63. Previous chest radiation therapy at age 64. Patient used Hormonal Contraceptives for 2 years. 12/21/2023, Lumpectomy on the Right side. 12/21/2023, Malignant US breast localization RT on the right side. Maternal aunt had breast cancer, age 38. Maternal aunt had breast cancer, age 78. Paternal grandmother had breast cancer at or over age 50. Prior Study Comparison: 06/03/2018 Bilateral MG screening mammo w CAD - 2, Unknown. 09/23/2023 Bilateral MG 3D screening mammo w/cad, Unknown. 10/08/2023 Right MG work up mamm w CAD RT, Unknown. 11/04/2023 Right Diagnostic Mammogram, Unknown. 12/21/2023 Right MG diagnostic mammo RT wo CAD, [facility]. Tissue Density: The breasts are heterogeneously dense, which may obscure small masses. Findings: Analyzed By CAD. Postoperative changes right breast with a large seroma noted measuring 6.2 x 5.2 cm. Clinical management recommended. The left breast is free of mass. No microcalcifications seen within either breast. Right-sided and thickening noted. Overall Assessment: Benign, BI-RAD 2 Management: Diagnostic Mammogram of both breasts in 1 year. . Results were given to the patient verbally at the time of exam. Patient should continue monthly self-breast exams. A clinical breast exam by your physician is recommended on an annual basis. This exam should not preclude additional follow-up of suspicious palpable abnormalities. Note on Edith scores and lifetime risk: 1. A Edith score greater than 3% is considered moderate risk. If this is the case, consider specialist referral to assess eligibility for a risk reducing agent. 2. If overall lifetime risk for the development of breast cancer is 20% or higher, the patient may qualify for future screening with alternating mammogram and breast MRI. [facility], Workstation: 3, 09/26/2024 8:57 AM. Electronically signed and approved by: Vik Zamora M.D. Radiologis
== END | disposition home or self-care (01) ==
LOC: RADMAMWWP 08:06
PROVIDERS: ATTEND Surgery
DX: Z85.3 Personal history of malignant neoplasm of breast (principal); Z78.0 Asymptomatic menopausal state; Z80.3 Family history of malignant neoplasm of breast; R92.333 Mammographic heterogeneous density, bilateral breasts
CPT/HCPCS: 77066; G0279; 77062

== ENCOUNTER → 2025-03-08 | Outpatient (CLI) | payer MEDICARE, BC ==
--- NOTE | 2025-03-08 13:04 | P.PN ---
Subjective Progress Note Date: 03/08/25 Principal diagnosis: right breast IDC [id number] Principal diagnosis: right breast IDC 2023 Jessica is a 65-year-old white female seen in consultation for Dr. Carrillo regarding a right breast biopsy-proven invasive ductal carcinoma. She underwent a routine screening mammogram in September 2023 which showed a suspicious density in the retroareolar area of the right breast. She had confirmatory views on 10-08-2023. An ultrasound was done which showed a heterogeneous hypoechoic mass with irregular and slightly elevated margins measuring 0.7 x 0.7 x 0.5 cm. Ultrasound core biopsy was performed on 11-04-2023 at [facility], this was positive for grade 1 invasive ductal carcinoma ER positive VT negative HER2 negative low Ki-67. She did not feel any lumps masses or nodules of concern in either breast. She has not had any surgery on her breast. Note Dr. Carrillo. medical oncology 11-16-2023 reviewed, on visit in May 2024 recommended hormone therapy (on hormone blocking agent, anestrazole tolerating it well) OR 12-21-23 8 mm IDC, all margins (-), SNB 3 nodes (-) radiation oncology note : completed March 2024; 20 treatments; Dr. Dodd in [place] through [facility] on 05-26-24 she had a 280 cc seroma aspirated 08-22-24 removed sebacous cyst removed right axilla She is not complaining of any new lumps masses or nodules of concern bilateral mammogram 09-26-24 BIRAD 2 Caffeine: 4 cups/day nicotine: 1/2 PPD BCP: 3 years in remote past chocolate: occasional Family History: 2 maternal aunts: breast cancer paternal grandmother: breast cancer father: nonhodgkins lymphoma, melanoma mother: melanoma; ? ovarian cancer Hormonal History: menarche: 10 , breast fed: no, age at first : 21 menopause: hysterectomy 40 for fibroids Surgical History: gallbaldder tonsil ankle femoral artery bypass surgery stint in heart carotid artery surgery; endarterectomy thyroid right breast lumpectomy and SNB Medical History: heart disease/ on a recent echo athrosclerotic disease ? COPD; SOB with walking high cholesterol HTN hypothyroid TIA Social History: nicotine: as above alcohol: none drugs: none - Constitutional Constitutional: Denies chills, Denies fever - EENT Eyes: denies blurred vision, denies pain Ears: bilateral: decreased hearing, tinnitus Ears, nose, mouth and throat: Denies headache, Denies sore throat - Breasts Breasts: bilateral: as per HPI - Cardiovascular Cardiovascular: Reports shortness of breath - Respiratory Respiratory: Reports as per HPI, Reports cough - Gastrointestinal Gastrointestinal: Denies abdominal pain, Denies diarrhea, Denies nausea, Denies vomiting - Genitourinary (Female) Genitourinary: Reports as per HPI - Menstruation Menstruation: Reports post hysterectomy - Musculoskeletal Musculoskeletal: Reports myalgias - Integumentary Integumentary: Denies pruritus, Denies rash - Neurological Neurological: Denies numbness, Denies weakness - Psychiatric Psychiatric: Denies anxiety, Denies depression - Endocrine Endocrine: Denies fatigue, Denies weight change - Hematologic/Lymphatic Comment: plavix, baby aspirin - Allergic/Immunologic Allergic/Immunologic: Reports as per HPI, Reports seasonal allergies Past Medical History History of Any Multi-Drug Resistant Organisms: None Reported Smoking Status: Current every day smoker Medications and Allergies Allergies Allergy/AdvReac Type Severity Reaction Status Date / Time lisinopril AdvReac Cough Unverified 12/01/23 11:04 Objective - Constitutional General appearance: Present: cooperative - EENT Eyes: Present: EOMI ENT: Present: hearing grossly normal - Neck Neck: Present: normal ROM - Respiratory Respiratory: bilateral: CTA - Cardiovascular Rhythm: regular Heart sounds: normal: S1, S2 - Integumentary Integumentary: Present: normal turgor - Musculoskeletal Musculoskeletal: Present: gait normal - Psychiatric Psychiatric: Present: A&O x's 3, appropriate affect, intact judgment & insight - Additional findings Additional findings: Breast Exam: BRA: 38C Inspection: right side smaller than left side; bilateral grade 3 ptosis palpation: right breast: Exam fibrocystic changes, post op changes, no masses of concern, post surgical and radiation changes Right axilla: No adenopathy of concern well healed scar, probable small seroma Left breast: Multi positional exam fibrocystic changes, post op changes, no nipple or aerola, Left axilla: No adenopathy of concern Assessment and Plan Assessment: Impression: Central lumpectomy, right breast; status post radiation therapy Plan: follow up medical oncology follow up radiation oncology bilateral mammogram 6 months with appointment follow up sooner any concerns CC: Dr. Flynn
[2025-03-08 13:05] VITALS: BP 147/61; PULSE 69; RESP 16; TEMP 97.9
== END ==
LOC: WWCWWP 12:44
PROVIDERS: ATTEND Surgery
DX: C50.911 Malignant neoplasm of unspecified site of right female breast (principal); F17.210 Nicotine dependence, cigarettes, uncomplicated; Z92.3 Personal history of irradiation; Z88.8 Allergy status to other drugs, medicaments and biological substances; Z98.890 Other specified postprocedural states